=== PATIENT | male | born 1960 | race African-American/Black ===

== ENCOUNTER 2024-01-13 09:57 | Outpatient (RCR) | payer MEDICARE, OTHER ==
[2024-01-13] MEDS ORDERED: LIDOCAINE VISC 2% SOLN 15 ML UDC ONE (13:36)
[2024-01-13] MEDS ORDERED: COLLAGENASE OINTMENT 30 GM TUBE ONE (13:36)
== END 2024-02-04 ==
LOC: WCC 09:57
PROVIDERS: ATTEND Internal Medicine Infectious Disease
DX: L89.324 Pressure ulcer of left buttock, stage 4 (principal); L89.153 Pressure ulcer of sacral region, stage 3; I87.311 Chronic venous hypertension (idiopathic) with ulcer of right lower extremity; L97.812 Non-pressure chronic ulcer of other part of right lower leg with fat layer exposed